=== PATIENT | female | born 1990 | race Caucasian/White ===

== ENCOUNTER 2023-10-05 11:40 | Emergency (ER) | payer BC, MEDICAID, SELFPAY ==
[2023-10-05 11:49] VITALS: BP 132/79; PULSE 77; RESP 16; TEMP 36.8; O2SAT 100
[2023-10-05] MEDS: KETOROLAC 30 MG/ML VIAL (*BKC) IM (12:10)
--- NOTE | 2023-10-05 12:33 | ED.UPPEXIN ---
HPI - Extremity Injury (Upper) General Chief Complaint: Extremity Injury, Upper Stated Complaint: R shoulder pain Time Seen by Provider: 10/05/23 12:08 History of Present Illness HPI narrative: Pt presents with recurrence of right shoulder pain which is getting worse. Pt says she initially had issues with her shoulder 5 years ago and was told she had a partial rotator cuff tear. Pt went to PT and took ibuprofen and it got better. Pt had issues a couple of years ago and told she had bursitis. Pt says over the last few weeks her shoulder is hurting more and she can only lift or raise it to about 80 degrees do to pain. Pt has never seen ortho or had MRI. Pt is planning on switching PCP's. Related Data Allergies Allergy/AdvReac Type Severity Reaction Status Date / Time amoxicillin Allergy Unknown Verified 10/05/23 12:02 Review of Systems Review of Systems: All systems reviewed & are unremarkable except as noted in HPI and below Exam Const: General: healthy appearing and no acute distress Nutritional Appearance: well nourished Orientation/consciousness: patient oriented x3 Limitations: no limitations Resp: Effort & Inspection: normal respiratory effort Auscultation: clear to auscultation bilaterally Cardio: Rate: regular rate Rhythm: regular rhythm GI: GI Palp: Yes Soft to palpation and No Tenderness to palpation present (GI) Auscultation: normal bowel sounds Skin: General skin exam: normal color Wounds: no wounds Neuro: General: patient oriented x3, moves all extremities and no focal motor deficits Speech: normal speech Extrem: Other: tender anterior deltoid and posterior deltoid. able to flex and abduct only to about 80 degrees due to pain. Course Vital Signs Vital signs: Vital Signs Temperature 98.2 F 10/05/23 11:49 Pulse Rate 77 10/05/23 11:49 Respiratory Rate 16 10/05/23 11:49 Blood Pressure 132/79 10/05/23 11:49 Pulse Oximetry 100 10/05/23 11:49 Oxygen Delivery Room Air 10/05/23 11:49 Temperature 98.2 F 10/05/23 12:53 Pulse Rate 76 10/05/23 12:53 Respiratory Rate 14 10/05/23 12:53 Blood Pressure 128/75 10/05/23 12:53 Pulse Oximetry 100 10/05/23 12:53 Oxygen Delivery Room Air 10/05/23 11:49 MDM - Extremity Injury (Upper) MDM Narrative Medical decision making narrative: could be deltoid strain or bursitis but concerned for rotator cuff injury or other pathology. Pt has had x rays in past so this will be low yield. Pt needs MRI. Will give shot of toradol and home on prednisone wean and ortho follow up. Discharge Plan Discharge Clinical Impression: Right shoulder pain Patient Disposition: Home, Self-Care Condition: Improved Instructions: Antibiotic Form, Shoulder Pain (ED) Prescriptions: New prednisone 10 mg tablet See Taper PO DAILY 15 Days Qty: 45 0RF Taper: Prednisone Taper from 50 mg;15 days 50 mg DAILY for 3 Days and 0 Hour 40 mg DAILY for 3 Days and 0 Hour 30 mg DAILY for 3 Days and 0 Hour 20 mg DAILY for 3 Days and 0 Hour 10 mg DAILY for 3 Days and 0 Hour Follow-up/Referrals: Ronnie Teixeira MD [Physician] - UNKNOWN,DOCTOR [Primary Care Provider] -
[2023-10-05 12:53] VITALS: BP 128/75; PULSE 76; RESP 14; TEMP 36.8; O2SAT 100
== END 2023-10-05 12:54 | disposition home or self-care (01) ==
PROVIDERS: Emergency Provider Emergency Medicine
DX: M25.511 Pain in right shoulder (principal)
CPT/HCPCS: 96372; 99283; J1885